=== PATIENT | female | born 1975 | race Caucasian/White ===

== ENCOUNTER 2024-09-16 14:47 | Outpatient (CLI) | payer OTHER | END 2024-09-16 14:48 | disposition home or self-care (01) | LOC: CSHMAMMO 14:47 | DX: Z12.31 Encounter for screening mammogram for malignant neoplasm of breast (principal) | CPT/HCPCS: 77063; 77067 ==

== ENCOUNTER 2025-09-20 12:09 | Outpatient (CLI) | payer BC | END 2025-09-20 12:10 | disposition home or self-care (01) | LOC: CSHMAMMO 12:09 | PROVIDERS: ATTEND Family Medicine | DX: Z12.31 Encounter for screening mammogram for malignant neoplasm of breast (principal) | CPT/HCPCS: 77063; 77067 ==